=== PATIENT | female | born 1980 | race Two or more races ===

== ENCOUNTER 2024-05-31 15:24 | Emergency (ER) | payer MEDICAID ==
[~2024-05-31] VITALS: Ht 157.5 cm; Wt 95.3 kg
[2024-05-31 16:20] VITALS: BP 149/99; TEMP 98.4; O2SAT 99
[2024-05-31] MEDS: diphenhydrAMINE HCL 50 MG/ML VIAL IV ONE (17:30)
[2024-05-31] MEDS: IV NS 0.9% 1,000 ML BAG IV ONE (17:30)
[2024-05-31] MEDS: PROCHLORPERAZINE EDISYLATE 10 MG/2 ML VIAL IM/IV ONE (17:30)
[2024-05-31] MEDS ORDERED: diphenhydrAMINE HCL 50 MG/ML VIAL ONE (17:58)
[2024-05-31] MEDS ORDERED: PROCHLORPERAZINE EDISYLATE 10 MG/2 ML VIAL ONE (17:58)
[2024-05-31] MEDS ORDERED: ACETAMINOPHEN ES 500 MG TABLET ONE (17:59)
[2024-05-31] MEDS: ACETAMINOPHEN ES 500 MG TABLET PO ONE (18:19)
== END 2024-05-31 19:12 | disposition home or self-care (01) ==
LOC: ER 15:28
DX: G44.209 Tension-type headache, unspecified, not intractable (principal); I10 Essential (primary) hypertension; E78.00 Pure hypercholesterolemia, unspecified
CPT/HCPCS: 99284; 96374; 96361; 96372; J0780; J1200; J7030